=== PATIENT | male | born 1995 | race Caucasian/White ===

== ENCOUNTER 2018-09-27 13:38 | Emergency (ER) | payer SELFPAY ==
[~2018-09-27] VITALS: Ht 177.8 cm; Wt 61.8 kg
[2018-09-27] MEDS ORDERED: IV NORMAL SALINE 1,000ML 1,000 ML IV SCH (13:52)
--- NOTE | 2018-09-27 13:58 | PHYS DOC ---
Past History Past Medical History: No Pertinent History Past Surgical History: No Surgical History Smoking: Cigarettes Alcohol Use: None Drug Use: None Adult General Chief Complaint Chief Complaint: ABDOMINAL PAIN HPI HPI Patient is a 22 year old male who presents with complaining of abdominal pain. Patient states, at 10 AM because of sudden onset of left lower quadrant sharp pain with radiation to the suprapubic area as a constant severe pain and rated his pain 10 over 10 that gradually decreased to 8/10. Patient states he had several episodes of vomiting and dry heaves. Patient denies urinary symptoms, diarrhea and constipation, fever and chills, history of kidney stone of the same pain, recent dehydration. Review of Systems Review of Systems Constitutional: Denies fever or chills [] Eyes: Denies change in visual acuity, redness, or eye pain [] HENT: Denies nasal congestion or sore throat [] Respiratory: Denies cough or shortness of breath [] Cardiovascular: No additional information not addressed in HPI [] GI: Reports abdominal pain, nausea, vomiting, denies bloody stools or diarrhea [ ] : Denies dysuria or hematuria [] Musculoskeletal: Denies back pain or joint pain [] Integument: Denies rash or skin lesions [] Neurologic: Denies headache, focal weakness or sensory changes [] Endocrine: Denies polyuria or polydipsia [] All other systems were reviewed and found to be within normal limits, except as documented in this note. Physical Exam Physical Exam Constitutional: Well developed, well nourished, mild acute distress, non-toxic appearance. [] HENT: Normocephalic, atraumatic, oropharynx moist, no oral exudates, nose normal. [] Eyes: PERRLA, EOMI, conjunctiva normal, no discharge. [] Neck: Normal range of motion, no tenderness, supple, no stridor. [] Cardiovascular:Heart rate regular rhythm, no murmur [] Lungs & Thorax: Bilateral breath sounds clear to auscultation [] Abdomen: Bowel sounds normal, soft, no tenderness, no masses, no pulsatile masses. [] Skin: Warm, dry, no erythema, no rash. [] Back: No tenderness, no CVA tenderness. [] Extremities: No tenderness, no cyanosis, no clubbing, ROM intact, no edema. [] Neurologic: Alert and oriented X 3, normal motor function, normal sensory function, no focal deficits noted. [] Psychologic: Affect normal, judgement normal, mood normal. [] EKG EKG [] Radiology/Procedures Radiology/Procedures [address] [address] IMAGING REPORT Signed PATIENT: DEONNA PRIEST ACCOUNT: [id number] : 1995 LOCATION: ER AGE: 22 SEX: M EXAM STATUS: REG ER ORD. PHYSICIAN: WOODROW DUMONT MD REASON: Left lower abdominal pain PROCEDURE: CT ABDOMEN PELVIS WO CONTRAST CT ABDOMEN PELVIS WO CONTRAST History: Left lower abdominal pain. Exposure: One or more of the following individualized dose reduction techniques were utilized for this examination: 1. Automated exposure control 2. Adjustment of the mA and/or kV according to patient size 3. Use of iterative reconstruction technique. Comparison: None Evaluation of solid viscera, bowel and vasculature are limited by noncontrast protocol. The lung bases are clear. Liver and spleen appear unremarkable. Pancreas appears unremarkable. No adrenal mass. There is a small nodule medial to the spleen likely a splenule. Mild nephrocalcinosis. This is seen bilaterally. No evidence of right-sided urolithiasis. There is a calculus within the left distal ureter measuring 3 mm, with mild dilatation of the left ureter and mild left hydronephrosis compatible with obstruction. No calcified gallstone. No evidence of aortic aneurysm. No significant lymph node enlargement. No evidence of bowel obstruction. No evidence of acute colitis. The appendix is normal. No evidence of ascites. No evidence of pneumoperitoneum. The urinary bladder is not evaluated as it is not distended. There is no evidence of a pelvic mass. Transitional anatomy identified at the lumbosacral junction of the spine. IMPRESSION: 1. There is a mildly obstructive calculus in the distal left ureter measuring 3 mm. 2. Mild nephrocalcinosis. Electronically signed by: Juan Soliman MD (09/27/2018 2:50 PM) [facility] DICTATED AND SIGNED BY: JUAN SOLIMAN MD DATE: 09/27/18 1443 CC: WOODROW DUMONT MD; NON,STAFF ~ Course & Med Decision Making Course & Med Decision Making Pertinent Labs and Imaging studies reviewed. (See chart for details) Evaluation of patient in ER showed 22-year-old male patient with left lower quadrant pain and nausea since this morning. Patient had unremarkable physical exam. Labs showed hematuria and leukocytosis with 3 mm left UVJ junction stone. Patient treated with IV fluid, Toradol and Zofran and felt better and tolerated oral intake. Plan discharge patient home diagnose of renal colic and kidney stone and instruction to follow up with on-call urologist and strain all of the urine. Dragon Disclaimer Dragon Disclaimer This electronic medical record was generated, in whole or in part, using a voice recognition dictation system. Departure Departure: Impression: Primary Impression: Renal colic on left side Additional Impressions: Ureterolithiasis Tobacco abuse Tobacco abuse counseling Disposition: HOME, SELF-CARE (at 1525) Condition: IMPROVED Referrals: ANDRAE KUMAR MD Patient Instructions: Diet for Kidney Stones, Kidney Biopsy, Kidney Stones, Smoking Cessation, Tips For Success Additional Instructions: Drink plenty of liquids Follow-up with your primary care physician in 3-5 days Return to ER if not getting better Strain all of urinary Follow-up with on-call urologist in 2 or 3 days Scripts Ondansetron Hcl (ZOFRAN) 4 Mg Tablet 1 TAB PO Q6HRS for nausea and vomiting, #12 TAB Prov: WOODROW DUMONT MD 09/27/18 Tamsulosin Hcl (FLOMAX) 0.4 Mg Cap.er.24h 1 CAP PO DAILY for kidney stone, #14 CAP 0 Refills Prov: WOODROW DUMONT MD 09/27/18 Naproxen (NAPROSYN) 500 Mg Tablet 500 MG PO BID for pain, #20 TAB Prov: WOODROW DUMONT MD 09/27/18 Problem Qualifiers WOODROW DUMONT MD Sep 27, 2018 13:58
[2018-09-27] MEDS ORDERED: ONDANSETRON PF 4 MG/2 ML VIAL. IV ONE (14:00)
[2018-09-27] MEDS ORDERED: KETOROLAC 30 MG/ML VIAL. IV ONE (14:00)
[2018-09-27] MEDS ORDERED: ONDANSETRON PF 4 MG/2 ML VIAL. ONE (14:03)
[2018-09-27] MEDS ORDERED: KETOROLAC 30 MG/ML VIAL. ONE (14:04)
[2018-09-27 14:12] LABS: BASO % 0 % (0-3); EOS % 0 % (0-3); HEMATOCRIT 50.3 % (39.0-53.0); HEMOGLOBIN 17.1 g/dL (13.0-17.5); LYMPH % 7 % (24-48); MEAN CORPUSCULAR HEMOGLOBIN 32 pg (25-35); MEAN CORPUSCULAR HGB CONC 34 g/dL (31-37); MEAN CORPUSCULAR VOLUME 93 fL (79-100); MONO # 0.7 x10^3/uL (0.0-1.1); MONO % 5 % (0-9); NEUT # 12.7 x10^3uL (1.8-7.7); NEUT % 88 % (31-73); PLATELET COUNT 355 x10^3/uL (140-400); RED BLOOD COUNT 5.42 x10^6/uL (4.30-5.70); RED CELL DISTRIBUTION WIDTH 13.8 % (11.5-14.5); WHITE BLOOD COUNT 14.4 x10^3/uL (4.0-11.0)
[2018-09-27 14:26] LABS: BILIRUBIN,URINE NEG (NEG); CLARITY,URINE CLOUDY; COLOR,URINE AMBER; GLUCOSE,URINE NEG (NEG)
[2018-09-27 14:27] LABS: BACTERIA,URINE FEW /HPF (0-FEW); NITRITE,URINE NEG (NEG); RBC,URINE >40 /HPF (0-2); UROBILINOGEN,URINE 0.2 mg/dL (0.2 mg/dL)
[2018-09-27 14:28] LABS: ALBUMIN 4.8 g/dL (3.4-5.0); ALBUMIN/GLOBULIN RATIO 1.5 (1.0-1.7); CALCIUM 9.6 mg/dL (8.5-10.1); CREATININE 1.2 mg/dL (0.7-1.3); GFR 76.4; POTASSIUM 3.5 mmol/L (3.5-5.1); TOTAL BILIRUBIN 0.9 mg/dL (0.2-1.0); TOTAL PROTEIN 8.1 g/dL (6.4-8.2)
--- NOTE | 2018-09-27 14:54 | RAD ---
CT ABDOMEN PELVIS WO CONTRAST History: Left lower abdominal pain. Exposure: One or more of the following individualized dose reduction techniques were utilized for this examination: 1. Automated exposure control 2. Adjustment of the mA and/or kV according to patient size 3. Use of iterative reconstruction technique. Comparison: None Evaluation of solid viscera, bowel and vasculature are limited by noncontrast protocol. The lung bases are clear. Liver and spleen appear unremarkable. Pancreas appears unremarkable. No adrenal mass. There is a small nodule medial to the spleen likely a splenule. Mild nephrocalcinosis. This is seen bilaterally. No evidence of right-sided urolithiasis. There is a calculus within the left distal ureter measuring 3 mm, with mild dilatation of the left ureter and mild left hydronephrosis compatible with obstruction. No calcified gallstone. No evidence of aortic aneurysm. No significant lymph node enlargement. No evidence of bowel obstruction. No evidence of acute colitis. The appendix is normal. No evidence of ascites. No evidence of pneumoperitoneum. The urinary bladder is not evaluated as it is not distended. There is no evidence of a pelvic mass. Transitional anatomy identified at the lumbosacral junction of the spine. IMPRESSION: 1. There is a mildly obstructive calculus in the distal left ureter measuring 3 mm. 2. Mild nephrocalcinosis. Electronically signed by: Juan Soliman MD (09/27/2018 2:50 PM) [facility]
[2018-09-27 15:00] VITALS: BP 110/49
[2018-09-27 15:05] LABS: PLATELET CLUMP PRESENT; PLT ESTIMATE ADEQUATE (ADEQUATE)
[2018-09-27] MEDS ORDERED: NAPR-683 PO (15:29)
[2018-09-27] MEDS ORDERED: TAMS0.4C97 PO (15:29)
[2018-09-27] MEDS ORDERED: ONDA4TAB7 PO (15:29)
== END 2018-09-27 16:37 | disposition home or self-care (01) ==
LOC: ER 13:38
DX: N13.2 Hydronephrosis with renal and ureteral calculous obstruction (principal); D72.829 Elevated white blood cell count, unspecified; E83.59 Other disorders of calcium metabolism; R11.2 Nausea with vomiting, unspecified; F17.210 Nicotine dependence, cigarettes, uncomplicated; Z71.6 Tobacco abuse counseling
CPT/HCPCS: 36415; 74176; 80053; 81001; 83690; 85025; 96361; 96374; 96375; 99284; J1885; J2405; J7030